=== PATIENT | male | born 1980 | race Caucasian/White ===

== ENCOUNTER 2023-11-18 11:03 | Outpatient (CLI) | payer OTHER, SELFPAY ==
--- NOTE | ~2023-11-18 | XR_ITS ---
XR foot LT min 3V 11/18/2023 11:22 Indication: Left foot pain Procedure: 4 views left foot Comparison: No prior studies for comparison. Findings: There is a minimally displaced fracture of the left fifth metatarsal neck. No other fractur e. Lisfranc joint intact. No focal soft tissue abnormality. No foreign bodies. Impression: 1: Minimally displaced fracture left fifth metatarsal neck. Reviewed, dictated and finalized at location B. Impression: 1: Minimally displaced fracture left fifth metatarsal neck.
== END 2023-11-18 11:04 ==
PROVIDERS: PCP Family Medicine; Visit Provider Family Medicine
DX: M79.672 Pain in left foot (principal)
CPT/HCPCS: 73630